=== PATIENT | male | born 1990 | race Caucasian/White ===

== ENCOUNTER 2021-02-28 10:34 | Emergency (ER) | payer OTHER ==
[~2021-02-28] VITALS: Ht 165.1 cm; Wt 52.3 kg
[2021-02-28] MEDS ORDERED: LORazepam 1MG TABLET ONE (10:42)
[2021-02-28] MEDS ORDERED: LORazepam 1MG TABLET PO ONE (11:00)
[2021-02-28 11:28] VITALS: BP 134/97
--- NOTE | 2021-02-28 12:41 | NUR ---
Bobo donnelly in [facility] - 02/28/21 at 1242 by [email or web address] pt maia
== END 2021-02-28 13:09 | disposition home or self-care (01) ==
LOC: ED 12:00
DX: R07.89 Other chest pain (principal); F15.10 Other stimulant abuse, uncomplicated; R00.0 Tachycardia, unspecified; Z21 Asymptomatic human immunodeficiency virus [HIV] infection status
CPT/HCPCS: 71045; 93005; 99283

== ENCOUNTER 2021-03-01 05:33 | Emergency (ER) | payer OTHER ==
[~2021-03-01] VITALS: Ht 165.1 cm; Wt 67.4 kg
--- NOTE | 2021-03-01 05:58 | NUR ---
ekg done in triage. ambulatory back from triage. placed on all monitors. call light inreach.
[2021-03-01] MEDS ORDERED: LORazepam 1MG TABLET PO ONE (07:00)
[2021-03-01] MEDS ORDERED: LORazepam 1MG TABLET ONE (07:20)
--- NOTE | 2021-03-01 07:21 | NUR ---
PT MEDICATED PER EMAR.
[2021-03-01 07:43] LABS: BASOPHILS % (AUTO) 1 % (0-1); EOSINOPHILS % (AUTO) 1 % (1-7); LYMPHOCYTES % (AUTO) 29 % (22-44); MEAN CORPUSCULAR HEMOGLOBIN 25.8 pg (27.5-34.5); MEAN PLATELET VOLUME 8.3 fL (7.4-10.4); MONOCYTES % (AUTO) 11 % (2-9); NEUTROPHILS % (AUTO) 59 % (42-75); PLATELET COUNT 194 x10^3/uL (130-400); RED BLOOD COUNT 6.04 x10^6/uL (4.38-5.82); RED CELL DISTRIBUTION WIDTH 15.5 % (9.4-14.8)
[2021-03-01 07:47] LABS: ALBUMIN 4.2 g/dL (3.4-5.0); ANION GAP 11 mmol/L (5-15); CALCIUM 9.3 mg/dL (8.5-10.1); CHLORIDE 100 mmol/L (98-107); CREATININE 0.83 mg/dL (0.7-1.3)
[2021-03-01 07:51] LABS: TROPONIN I < 0.015 ng/mL (0.000-0.045)
--- NOTE | 2021-03-01 09:27 | NUR ---
TASK RN: Patient/Caregiver given discharge instructions and they have confirmed that they understand the instructions. Patient ambulatory with steady gait. NAD, all questions answered appropriately, denies additional needs at this time. No personal belongings left in room after discharge.
[2021-03-01 09:28] VITALS: BP 140/97
== END 2021-03-01 09:41 | disposition home or self-care (01) ==
LOC: ED 09:32
DX: R07.89 Other chest pain (principal); F15.10 Other stimulant abuse, uncomplicated
CPT/HCPCS: 36415; 71045; 80048; 82040; 84484; 85025; 93005; 99285

== ENCOUNTER 2021-03-02 06:17 | Emergency (ER) | payer OTHER ==
[~2021-03-02] VITALS: Ht 165.1 cm; Wt 68.0 kg
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
--- NOTE | 2021-03-02 07:32 | NUR ---
TO ROOM FROM WALL.
[2021-03-02] MEDS ORDERED: LORazepam 1MG TABLET ONE (07:41)
[2021-03-02] MEDS ORDERED: LORazepam 1MG TABLET PO ONE (08:00)
[2021-03-02 09:11] VITALS: BP 130/78
== END 2021-03-02 09:17 | disposition home or self-care (01) ==
LOC: ED 09:00
DX: F15.129 Other stimulant abuse with intoxication, unspecified (principal)
CPT/HCPCS: 99283